=== PATIENT | female | born 2000 | race Caucasian/White ===

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

== ENCOUNTER → 2020-04-18 | Outpatient (CLI) | payer OTHER ==
[2020-04-18 15:54] LABS: URINE BILIRUBIN NEGATIVE (Negative); URINE BLOOD 3+ (Negative); URINE CLARITY CLEAR; URINE COLOR YELLOW; URINE GLUCOSE-RANDOM* NEGATIVE (Negative); URINE KETONES NEGATIVE (Negative); URINE LEUKOCYTES-REFLEX NEGATIVE (Negative); URINE NITRITE-REFLEX NEGATIVE (Negative); URINE PROTEIN (DIPSTICK) NEGATIVE (Negative); URINE SPECIFIC GRAVITY >= 1.030 (1.005-1.035); URINE UROBILINOGEN 0.2 E.U./dl (0.2-1.0)
[2020-04-18 15:57] LABS: ABSOLUTE NEUTROPHILS 4.6 thou/uL (1.4-8.2); BASOPHILS 0.6 % (0.0-2.0); EOSINOPHILS 0.7 % (0.0-3.0); HEMATOCRIT 39.7 % (37.0-47.0); HEMOGLOBIN 13.5 gm/dL (12.0-15.0); LYMPHOCYTES 23.1 % (24.0-44.0); MCH 29.2 pg (26.0-34.0); MCV 85.9 fL (80.0-100.0); MONOCYTES 4.2 % (1.0-8.0); PLATELET COUNT 247 thou/uL (150-400); POLYS 71.4 % (36.0-66.0); RBC 4.63 mil/uL (4.20-5.00); RDW 14.1 % (10.5-14.5); WBC 6.5 thou/uL (4.0-11.0)
[2020-04-18 15:58] LABS: SQUAMOUS 0-3 Few /LPF (0-3); URINE RBC 3-10 Few /HPF (0-2); URINE WBC-REFLEX 0-5 Rare /HPF (0-5)
[2020-04-18 15:59] LABS: BACTERIA-REFLEX 1-9 Few /HPF (None Seen); CASTS None Seen /LPF (None Seen); CRYSTALS None Seen /LPF (None Seen)
[2020-04-18 16:12] LABS: ANION GAP 9 mmol/L (7-16); BUN 7 mg/dL (7-18); CALCIUM 9.4 mg/dL (8.5-10.1); CHLORIDE 105 mmol/L (98-107); CHOLESTEROL 208 mg/dL (<200); CO2 26 mmol/L (21-32); CREATININE 0.8 mg/dL (0.6-1.0); GLUCOSE 82 mg/dL (74-106); HDL CHOLESTEROL 47 mg/dL (>40); LDL CHOLESTEROL 140 mg/dL (<100); POTASSIUM 4.1 mmol/L (3.5-5.1); SGOT 19 U/L (15-37); SGPT 30 U/L (30-65); SODIUM 140 mmol/L (136-145); TC:HDL 4.4 Ratio (Not establshd); TOTAL BILIRUBIN 0.5 mg/dL (0.2-1.0); TOTAL PROTEIN 7.8 g/dL (6.4-8.2); TRIGLYCERIDE 109 mg/dL (<150); VLDL 22 mg/dL (<40)
== END ==
LOC: LABMALL 15:09
PROVIDERS: ATTEND Family Medicine
DX: Z00.00 Encounter for general adult medical examination without abnormal findings (principal)

== ENCOUNTER 2021-06-01 20:43 | Emergency (ER) | payer OTHER ==
[~2021-06-01] VITALS: Ht 167.6 cm; Wt 95.3 kg
[2021-06-01] MEDS ORDERED: CHILDREN'S ASPI81 MG PO (20:57)
[2021-06-01] MEDS ORDERED: PEPCID20 MG PO (20:57)
[2021-06-01] MEDS ORDERED: TUMS200 MG PO (20:58)
[2021-06-01 22:20] LABS: HEMATOCRIT 41.7 % (37.0-47.0); MCH 29.2 pg (26.0-34.0); MCHC 33.5 g/dL (28.0-37.0); MCV 87.1 fL (80.0-100.0); RBC 4.79 mil/uL (4.20-5.00); WBC 16.5 thou/uL (4.0-11.0)
[2021-06-01 22:28] LABS: ANION GAP 9 mmol/L (7-16); BUN 12 mg/dL (7-18); CHLORIDE 104 mmol/L (98-107); CO2 25 mmol/L (21-32); CREATININE 0.8 mg/dL (0.6-1.0); GLUCOSE 118 mg/dL (74-106); POTASSIUM 3.9 mmol/L (3.5-5.1); SODIUM 138 mmol/L (136-145)
[2021-06-01 22:38] LABS: ALBUMIN 3.8 g/dL (3.4-5.0); SGOT 120 U/L (15-37); SGPT 66 U/L (30-65); TOTAL BILIRUBIN 0.9 mg/dL (0.2-1.0); TOTAL PROTEIN 7.6 g/dL (6.4-8.2)
[2021-06-02] MEDS ORDERED: COMPAZINE10 M2 PO ×3 (01:37→01:58)
[2021-06-02] MEDS ORDERED: ZOFRAN ODT4 MG PO ×3 (01:37→01:58)
[2021-06-02 01:41] VITALS: BP 126/66
--- NOTE | 2021-06-02 11:30 | EKG ---
[address] [address] [place] [address] ELECTROCARDIOGRAM REPORT Name: TED ARMENTA [id number] Admission: 06/01/21 Attend Phys: Discharge: 06/02/21 Date of : 00 Report #: [id number] [facility] ED Test Date: 2021-06-01 Test Time: 20:49:44 Pat Name: TED ARMENTA Department: Room: Gender: F [employer]: ANSHU : 2000 Requested By: Danielle Jacobo Order Number: [id number] MD: Nicholas Garrett Measurements Intervals [place] Rate: 69 P: 20 [place]: 144 QRS: 32 QRSD: 97 T: 44 QT: 395 QTc: 423 Interpretive Statements Sinus rhythm RSR' in V1 or V2, probably normal variant No previous ECG available for comparison Electronically Signed On 06-02-2021 11:30:12 CDT by Nicholas Garrett [email or web address] <ELECTRONICALLY SIGNED> By: Nicholas Garrett MD, [facility] 06/02/21 1130 2049 Nicholas Garrett MD, FACC /EPI
--- NOTE | 2021-06-02 11:31 | EKG ---
[place] [address] [address] [facility] [place] [address] ELECTROCARDIOGRAM REPORT Name: TED ARMENTA [facility] [id number] Admission: 06/01/21 Attend Phys: Discharge: 06/02/21 Date of : 00 Report #: [id number] [facility] ED Test Date: 2021-06-01 Test Time: 22:31:17 Pat Name: TED ARMENTA Department: Room: Gender: F [employer]: : 2000 Requested By: Danielle Jacobo Order Number: [id number] MD: Nicholas Garrett Measurements Intervals [place] Rate: 69 P: 20 AR: 134 QRS: 39 QRSD: 83 T: 46 QT: 385 QTc: 413 Interpretive Statements Sinus rhythm Compared to ECG 06/01/2021 20:49:44 No significant changes Electronically Signed On 06-02-2021 11:31:20 CDT by Nicholas Garrett [email or web address] <ELECTRONICALLY SIGNED> By: Nicholas Garrett MD, [facility] 06/02/21 1131 30 2231 Nicholas Garrett MD, FACC /EPI
== END 2021-06-02 02:03 | disposition home or self-care (01) ==
LOC: ER 20:43
PROVIDERS: Nurse Practitioner Family
DX: R07.89 Other chest pain (principal); Z20.822 Contact with and (suspected) exposure to COVID-19; R10.13 Epigastric pain; D72.829 Elevated white blood cell count, unspecified; Z79.82 Long term (current) use of aspirin; Z79.899 Other long term (current) drug therapy; Z79.891 Long term (current) use of opiate analgesic

== ENCOUNTER → 2021-06-20 | Outpatient (CLI) | payer OTHER ==
[~2021-06-20] MED LIST: CHILDREN'S ASPI81 MG PO; COMPAZINE10 M2 PO; PEPCID20 MG PO; TUMS200 MG PO; ZOFRAN ODT4 MG PO
[2021-06-20 13:39] LABS: ABSOLUTE NEUTROPHILS 3.9 thou/uL (1.4-8.2); BASOPHILS 0.5 % (0.0-2.0); EOSINOPHILS 1.5 % (0.0-3.0); HEMATOCRIT 42.2 % (37.0-47.0); HEMOGLOBIN 14.2 gm/dL (12.0-15.0); LYMPHOCYTES 25.2 % (24.0-44.0); MCH 29.7 pg (26.0-34.0); MCHC 33.6 g/dL (28.0-37.0); MCV 88.5 fL (80.0-100.0); MONOCYTES 5.3 % (1.0-8.0); PLATELET COUNT 211 thou/uL (150-400); POLYS 67.5 % (36.0-66.0); RBC 4.77 mil/uL (4.20-5.00); RDW 13.2 % (10.5-14.5); WBC 5.8 thou/uL (4.0-11.0)
[2021-06-20 14:08] LABS: ANION GAP 7 mmol/L (7-16); BUN 7 mg/dL (7-18); CALCIUM 9.2 mg/dL (8.5-10.1); CHLORIDE 100 mmol/L (98-107); CHOLESTEROL 169 mg/dL (<200); CO2 27 mmol/L (21-32); CREATININE 0.7 mg/dL (0.6-1.0); GLUCOSE 84 mg/dL (74-106); HDL CHOLESTEROL 53 mg/dL (>40); LDL CHOLESTEROL 105 mg/dL (<100); POTASSIUM 4.1 mmol/L (3.5-5.1); SGOT 15 U/L (15-37); SGPT 22 U/L (30-65); SODIUM 134 mmol/L (136-145); TC:HDL 3.2 Ratio (Not establshd); TOTAL BILIRUBIN 0.7 mg/dL (0.2-1.0); TRIGLYCERIDE 55 mg/dL (<150); VLDL 11 mg/dL (<40)
== END ==
LOC: LAB 12:04
PROVIDERS: ATTEND Family Medicine
DX: Z00.00 Encounter for general adult medical examination without abnormal findings (principal)

== ENCOUNTER 2021-06-28 22:22 | Emergency (ER) | payer OTHER ==
[~2021-06-28] VITALS: Ht 165.1 cm; Wt 95.3 kg
[2021-06-28] MEDS ORDERED: NORETHIND-ETH1 EACH PO (22:37)
[2021-06-28 23:23] LABS: URINE BILIRUBIN NEGATIVE (Negative); URINE BLOOD NEGATIVE (Negative); URINE CLARITY CLOUDY; URINE COLOR YELLOW; URINE GLUCOSE-RANDOM* NEGATIVE (Negative); URINE KETONES NEGATIVE (Negative); URINE LEUKOCYTES-REFLEX NEGATIVE (Negative); URINE NITRITE-REFLEX NEGATIVE (Negative); URINE PROTEIN (DIPSTICK) NEGATIVE (Negative); URINE SPECIFIC GRAVITY 1.015 (1.005-1.035)
[2021-06-29 00:10] LABS: ABSOLUTE NEUTROPHILS 7.3 thou/uL (1.4-8.2); BASOPHILS 0.3 % (0.0-2.0); EOSINOPHILS 0.3 % (0.0-3.0); HEMATOCRIT 42.7 % (37.0-47.0); HEMOGLOBIN 14.2 gm/dL (12.0-15.0); LYMPHOCYTES 8.3 % (24.0-44.0); MCH 29.5 pg (26.0-34.0); MCHC 33.1 g/dL (28.0-37.0); MONOCYTES 7.4 % (1.0-8.0); PLATELET COUNT 202 thou/uL (150-400); POLYS 83.7 % (36.0-66.0); RDW 13.5 % (10.5-14.5); WBC 8.8 thou/uL (4.0-11.0)
[2021-06-29 00:13] LABS: CREATININE 0.8 mg/dL (0.6-1.0); POTASSIUM 3.8 mmol/L (3.5-5.1)
[2021-06-29 00:19] LABS: TOTAL BILIRUBIN 1.4 mg/dL (0.2-1.0)
[2021-06-29] MEDS ORDERED: PROCHLORPERAZINE5 M2 PO (02:38)
[2021-06-29 02:39] VITALS: BP 118/70
== END 2021-06-29 02:39 | disposition home or self-care (01) ==
LOC: ER 22:22
PROVIDERS: Emergency Medicine
DX: R10.11 Right upper quadrant pain (principal); R74.01 Elevation of levels of liver transaminase levels; E80.7 Disorder of bilirubin metabolism, unspecified; Z79.891 Long term (current) use of opiate analgesic; Z79.899 Other long term (current) drug therapy

== ENCOUNTER → 2021-07-10 | Outpatient (CLI) | payer OTHER ==
[~2021-07-10] MED LIST changes: +COLACE 100 MG100 MG PO; +IBUPROFEN 200200 M1 PO; +MIRALAX17 GM PO; +NORETHIND-ETH1 EACH PO; +PEPCID AC10 MG PO; +PROCHLORPERAZINE5 M2 PO; +TRAMADOL 50 MG50 MG PO; +TYLENOL325 MG PO
== END | disposition home or self-care (01) ==
LOC: PAC 11:30 → LAB 11:42
PROVIDERS: ATTEND Student in an Organized Health Care Education/Training Program
DX: Z01.818 Encounter for other preprocedural examination (principal); Z20.822 Contact with and (suspected) exposure to COVID-19; R10.11 Right upper quadrant pain; Z79.899 Other long term (current) drug therapy

== ENCOUNTER 2021-07-11 06:06 | Observation (INO) | payer OTHER ==
[~2021-07-11] VITALS: Ht 165.1 cm; Wt 95.3 kg
[~2021-07-11 06:06] MED LIST changes: -COLACE 100 MG100 MG PO; -IBUPROFEN 200200 M1 PO; -MIRALAX17 GM PO; -TRAMADOL 50 MG50 MG PO; -TYLENOL325 MG PO
[2021-07-11 07:20] VITALS: BP 111/68
[2021-07-11] MEDS ORDERED: TRAMADOL 50 MG50 MG PO (07:54)
--- NOTE | 2021-07-11 14:54 | NUR ---
ASSUMED PT CARE FROM PACU AT 1415. PT IS ALERT & ORIENTED X4. PT HAS IV SITE ON KENAN 22 GAUGE. PT IS ON 2L NC O2. PT HAD LAP REI TODAY. GIVEN SCHEDULED PAIN MEDICATION PER ORDERED. PT HAS 3 LAP SITES ON ABDOMEN WITH DERMABOND C/D/I. FINISHED ADMISSION. PT FAMILY AT THE BEDSIDE. PT ON THE BED, BED ON THE LOWEST POSITION, SIDE RAILS UP, CALL LIGHT WITHIN REACH. WILL CONTINUE TO MONITOR PT. FOLLOW POC.
[2021-07-11 20:36] VITALS: BP 115/68
[2021-07-11 20:38] VITALS: BP 115/68
--- NOTE | 2021-07-12 01:53 | NUR ---
PT APPEARS TO BE RESTING WELL. DENIES PAIN. LAP SITES TO ABDOMEN LOOK AKAY. AFEBRILE. CONTINUES ON IV FLUIDS. WALKED AROUND THE HALLWAYS AT THE START OF SHIFT. DENIES ANY N/V.ALTERNATING TIMED TYLENOL AND IBUPROFEN FOR PAIN.CALLS WITH NEEDS.
[2021-07-12 06:06] VITALS: BP 119/70
[2021-07-12 06:14] LABS: HEMATOCRIT 36.6 % (37.0-47.0); HEMOGLOBIN 12.6 gm/dL (12.0-15.0); MCH 30.6 pg (26.0-34.0); MCHC 34.5 g/dL (28.0-37.0); MCV 88.5 fL (80.0-100.0); RBC 4.14 mil/uL (4.20-5.00); RDW 13.3 % (10.5-14.5); WBC 8.8 thou/uL (4.0-11.0)
[2021-07-12 06:29] LABS: ALBUMIN 3.3 g/dL (3.4-5.0); CALCIUM 8.6 mg/dL (8.5-10.1); CREATININE 0.8 mg/dL (0.6-1.0); POTASSIUM 3.8 mmol/L (3.5-5.1); TOTAL BILIRUBIN 0.6 mg/dL (0.2-1.0); TOTAL PROTEIN 6.6 g/dL (6.4-8.2)
[2021-07-12 08:36] VITALS: BP 115/57
[2021-07-12] MEDS ORDERED: IBUPROFEN 200200 M1 PO (11:11)
[2021-07-12] MEDS ORDERED: TYLENOL325 MG PO (11:11)
[2021-07-12] MEDS ORDERED: COLACE 100 MG100 MG PO (11:12)
[2021-07-12] MEDS ORDERED: MIRALAX17 GM PO (11:12)
--- NOTE | 2021-07-12 11:13 | NUR ---
A/O X 4. ROOM AIR. AD CRAIG. RIGHT UPPER ARM PIV-DRESSING D/C/I WITH LR INFUSING @ 100 MLS/HR. CONT B/B. HAS ABD LAPSITES WITH DERMABOND-NO DRAINAGE NOTED. LAST BM 07/10. REFUSED MIRALAX TODAY. BILATERAL SCDS/TEDS ON. WALKS IN HALLWAYS OFTEN. ABD PAIN AND RIGHT SHOULDER PAIN /10. TYLENOL GIVEN. NO NAUSEA NOTED. SPOKE WITH AND HE WILL ADVANCE HER DIET FOR LUNCH AND IF TOLERATED WELL WILL BE OK TO D/C TODAY.
--- NOTE | 2021-07-16 14:06 | PATH ---
[facility] [address] [place] [address] PATHOLOGY RPT PROCEDURE Name: TED ARMENTA Room #: 442-P SHALONDA Ceballos#: [id number] Admission: 07/11/21 Date of : 00 Discharge: 07/12/21 Report #: [id number] Path Case #: [id number] [facility] Accession Number: [id number] . 01 Material submitted: . gallbladder - GALLBLADDER . 01 Clinical history: . LAPAROSCOPIC CHOLECYSTECTOMY W/ GRAM SYMPTOMATIC CHOLELITHIASIS CHOLEDOCOLITHIASIS . 01 Diagnosis: Gallbladder "gallbladder cholecystectomy": - Chronic cholecystitis with cholelithiasis. (SHA:tyrone; 07/13/2021) S 07/13/2021 [facility] Local . 01 Electronically signed: . Cuco Aviles MD, Pathologist NPI- [id number] . 01 Gross description: . Fixative: Formalin Labeled: Gallbladder Specimen received: Previously opened cholecystectomy Dimensions: 5.1 x 3.0 x 1.5 cm Serosa: [place]-gracia and smooth Lymph node: Not present Mucosa: [place]-green and velvety with moderate yellow stippling Average wall thickness: 0.2-0.3 cm Calculi: Yes, multiple yellow-green bosselated calculi are present in the container measuring in aggregate 1.0 x 0.3 x 0.3 cm and ranging from 0.2-0.3 cm in greatest dimension Abnormalities: None identified A1- Comb Capper body, fundus, and the cystic duct margin. ([facility]; 07/12/2021) [facility] 07/13/2021 1344 Local . 01 Pathologist provided ICD-10: K80.10 . 01 CPT . 134738 Specimen Comment: A courtesy copy of this report has been sent to [phone], [phone] Specimen Comment: [id number] [place] [address] PATHOLOGY RPT PROCEDURE Name: TED ARMENTA Room #: 442-P SHALONDA Ceballos#: [id number] Admission: 07/11/21 Date of : 00 Discharge: 07/12/21 Report #: [id number] Path Case #: [id number] Specimen Comment: Report sent to / DR HU Specimen Comment: A duplicate report has been generated due to demographic updates. Performed at: [address], [place], [place] [id number] MD Cuco Aviles MD Phone: [phone]
== END 2021-07-12 13:48 | disposition home or self-care (01) ==
LOC: OR 06:06 → 4S 13:54 → OR 13:55 → 4S 07-12 13:48
PROVIDERS: ADMIT Surgery; ATTEND Surgery
DX: K80.64 Calculus of gallbladder and bile duct with chronic cholecystitis without obstruction (principal); Z20.822 Contact with and (suspected) exposure to COVID-19; D72.829 Elevated white blood cell count, unspecified; Z79.899 Other long term (current) drug therapy
CPT/HCPCS: 10102; 50010; 50101; 50411; 50555; 51297; 51489; 52265; 52266; 53307; 53310; 53312; 54022; 54118; 55245; 56462; 56525; 56526; 56674; 58534; 58574; 58910; 62110; 62900; 70005